=== PATIENT | female | born 1945 | race Caucasian/White ===

== ENCOUNTER → 2016-05-17 | Outpatient (CLI) | payer OTHER, BC | LOC: MMPC 09:00 | PROVIDERS: ATTEND Family Medicine | DX: J01.90 Acute sinusitis, unspecified (principal); J44.9 Chronic obstructive pulmonary disease, unspecified; J96.11 Chronic respiratory failure with hypoxia; Z87.891 Personal history of nicotine dependence | CPT/HCPCS: 99213; G0463 ==

== ENCOUNTER → 2016-06-03 | Outpatient (CLI) | payer OTHER, BC | LOC: MMPC 09:00 | PROVIDERS: ATTEND Family Medicine | DX: J01.90 Acute sinusitis, unspecified (principal); J44.9 Chronic obstructive pulmonary disease, unspecified; Z87.891 Personal history of nicotine dependence | CPT/HCPCS: 99213; G0463 ==

== ENCOUNTER → 2016-06-23 | Outpatient (CLI) | payer OTHER, BC ==
--- NOTE | 2016-06-23 13:35 | DI ---
US BRST U/L OR B/L, MAMMO DIAGNOSTIC B/L,06/23/2016 12:41 PM: Clinical History: Palpable lump of the right breast. Previous Exam: None at this facility. Findings: CC and MLO views of both breasts are obtained. There is a palpable marker within the right breast on the 12:00 axis approximately 1 cm from the nipple. There is no mass, architectural distortion nor suspicious clusters of microcalcifications. Physical examination revealed a soft, freely mobile superficial palpable mass measuring less than 1 c m from the 12:00 axis approximately 1 cm from the nipple. Sonographic evaluation revealed normal fibroglandular elements. Impression: BI-RADS: 2. Benign finding(s). No mammographic nor sonographic evidence of malignancy. Overall imaging assessment: Benign findings.
== END ==
LOC: MAMMO 12:33
PROVIDERS: ATTEND Family Medicine
DX: N63 Unspecified lump in breast (principal)
CPT/HCPCS: 76641; G0204

== ENCOUNTER → 2016-07-07 | Outpatient (CLI) | payer OTHER, BC ==
[2016-07-07 09:06] LABS: CREATININE 0.9 mg/dL (0.50-1.20)
== END ==
LOC: LAB 08:40
PROVIDERS: ATTEND Otolaryngology
DX: H90.3 Sensorineural hearing loss, bilateral (principal)
CPT/HCPCS: 36415; 82565; 84520

== ENCOUNTER → 2016-08-12 | Outpatient (CLI) | payer OTHER, BC | LOC: MMPC 09:00 | PROVIDERS: ATTEND Family Medicine | DX: J06.9 Acute upper respiratory infection, unspecified (principal); J96.11 Chronic respiratory failure with hypoxia; J44.9 Chronic obstructive pulmonary disease, unspecified | CPT/HCPCS: 99213; G0463 ==

== ENCOUNTER → 2016-09-01 | Outpatient (CLI) | payer OTHER, BC ==
--- NOTE | 2016-09-01 09:33 | DI ---
PA /LATERAL CHEST X-RAY, 09/01/2016 8:45 AM : Clinical History: Wheezing. Previous Exam: None at this facility. There is no acute soft tissue or bony abnormality. There is cardiomegaly with mild CHF. The heart has a globular configuration suggesting either a cardiomyopathy or a pericardial effusion. On the latera l film, there is no separation of the epicardial fat pad from the pericardial fat pad making a cardio myopathy more likely. There is no acute infiltrate. The major fissures and the minor fissure are thic kened probably secondary to a small amount of fluid. Mediastinal structures are normal. There are no pulmonary nodules. Readin. Cardiomegaly with CHF and with what probably is a small amount of pleural effusion bilaterally. T his condition may account for the patient's wheezing. 2. The heart has a globular configuration probably secondary to a cardiomyopathy. A pericardial effu vish is felt to be less likely.
== END ==
LOC: RAD 08:50
PROVIDERS: ATTEND Family Medicine
DX: R06.2 Wheezing (principal); I50.9 Heart failure, unspecified; I51.7 Cardiomegaly
CPT/HCPCS: 71020; 99214

== ENCOUNTER → 2016-10-13 | Outpatient (CLI) | payer OTHER, BC | LOC: MMPC 09:00 | PROVIDERS: ATTEND Family Medicine | DX: R22.0 Localized swelling, mass and lump, head (principal); J06.9 Acute upper respiratory infection, unspecified; Z87.891 Personal history of nicotine dependence | CPT/HCPCS: 99213; G0463 ==

== ENCOUNTER → 2016-12-27 | Outpatient (CLI) | payer OTHER, BC | LOC: MMPC 09:00 | PROVIDERS: ATTEND Family Medicine | DX: R05 Cough (principal); R06.02 Shortness of breath | CPT/HCPCS: 99213; G0463 ==